=== PATIENT | female | born 1970 | race Caucasian/White ===

== ENCOUNTER → 2020-01-08 | Outpatient (CLI) | payer OTHER ==
[~2020-01-08] MED LIST: NORCO 5-325 TA1 EACH PO; VALIUM2 MG PO
== END ==
LOC: LAB 08:31
PROVIDERS: ATTEND Nurse Practitioner
DX: U07.1 COVID-19 (principal)

== ENCOUNTER → 2020-01-19 | Outpatient (CLI) | payer OTHER | LOC: LAB 08:28 | PROVIDERS: ATTEND Nurse Practitioner | DX: U07.1 COVID-19 (principal) ==

== ENCOUNTER → 2020-04-02 | Outpatient (CLI) | payer OTHER ==
[2020-04-03 03:06] LABS: HEP B SURFACE Ab(ANTI-HBS Reactive (())
== END ==
LOC: LAB 10:20
PROVIDERS: ATTEND Nurse Practitioner
DX: Z00.00 Encounter for general adult medical examination without abnormal findings (principal); Z13.9 Encounter for screening, unspecified

== ENCOUNTER 2021-01-05 09:57 | Emergency (ER) | payer OTHER ==
[~2021-01-05] VITALS: Ht 170.2 cm; Wt 74.8 kg
[2021-01-05 09:58] VITALS: BP 125/88
[2021-01-05] MEDS ORDERED: BUPROPION XL300 MG PO (10:03)
[2021-01-05] MEDS ORDERED: CELEXA 20 MG TA20 MG PO (10:03)
--- NOTE | 2021-01-07 09:14 | EKG ---
[address] [address] ELECTROCARDIOGRAM REPORT Name: JULIANO COX Room #: DEP [facility]#: [id number] Admission: 01/05/21 Attend Phys: Discharge: 01/05/21 Date of : 72 Report #: [id number] [facility] ED Test Date: 2021-01-05 Test Time: 10:10:12 Pat Name: JULIANO COX Department: Room: Gender: F [employer]: : 1970 Requested By: Zeferino Livingston Order Number: [id number] MD: Jone Paz Measurements Intervals [place] Rate: 81 P: 72 AK: 144 QRS: 49 QRSD: 94 T: 19 QT: 389 QTc: 452 Interpretive Statements Sinus rhythm No significant abnormality No previous ECG available for comparison Electronically Signed On 01-07-2021 9:14:35 CDT by Jone Paz [email or web address] <ELECTRONICALLY SIGNED> By: Jone Paz MD, [facility] 01/07/21 0914 1010 1010 Jone Paz MD, FAC /EPI
== END 2021-01-05 12:20 | disposition home or self-care (01) ==
LOC: ER 09:57
PROVIDERS: Emergency Medicine
DX: R05 Cough (principal); Z20.822 Contact with and (suspected) exposure to COVID-19; Z79.891 Long term (current) use of opiate analgesic; Z79.899 Other long term (current) drug therapy; Z91.09 Other allergy status, other than to drugs and biological substances